=== PATIENT | male | born 1950 | race Caucasian/White ===

== ENCOUNTER 2018-02-28 05:42 | Day surgery (SDC) | payer MEDICARE, BC ==
[2018-02-28] MEDS ORDERED: METOCLOPRAMIDE 10 MG TABLET PO ONE (06:00)
[2018-02-28] MEDS ORDERED: FAMOTIDINE 20MG TABLET PO ONE (06:00)
[2018-02-28] MEDS ORDERED: VANCOMYCIN HCL 1,000 MG in DEXTROSE 5 % IN WATER 250 ML IVPB ONE ×2 (06:00)
[2018-02-28] MEDS ORDERED: ACETAMINOPHEN 1,000 MG/100 ML BTL IV ONE (06:00)
[2018-02-28] MEDS ORDERED: CELECOXIB 100 MG CAPSULE PO ONE (06:00)
[2018-02-28] MEDS ORDERED: MECLIZINE 25 MG TABLET PO ONE (06:00)
[2018-02-28 07:44] LABS: ABO GROUP O; ANTIBODY SCREEN NEGATIVE (NEGATIVE); RH TYPE POSITIVE
[2018-02-28] MEDS ORDERED: DIPHENHYDRAMINE HCL 25 MG CAPSULE PO PRN (08:06)
[2018-02-28] MEDS ORDERED: ACETAMINOPHEN 325 MG TAB PO PRN (08:06)
[2018-02-28] MEDS ORDERED: ACETAMINOPHEN W/ CODEINE 300MG/30MG TABLET PO PRN ×2 (08:06)
[2018-02-28] MEDS ORDERED: TRAMADOL HCL 50 MG TABLET PO PRN ×2 (08:06)
[2018-02-28] MEDS ORDERED: AL HYDROX/MAG HYDROX 30ML UD PO PRN (08:06)
[2018-02-28] MEDS ORDERED: METOCLOPRAMIDE 10 MG TABLET PO PRN (08:06)
[2018-02-28] MEDS ORDERED: PROMETHAZINE HCL 25 MG TABLET PO PRN (08:06)
[2018-02-28] MEDS ORDERED: HYDROCODONE/APAP 5/325MG TABLET PO PRN ×2 (08:06)
[2018-02-28] MEDS ORDERED: ONDANSETRON 4 MG ODT TABLET SL PRN (08:06)
[2018-02-28] MEDS ORDERED: MAGNESIUM HYDROXIDE 30 ML UDC PO PRN (08:06)
[2018-02-28] MEDS ORDERED: KETOROLAC 30 MG/ML VIAL IVP PRN ×2 (08:06)
[2018-02-28] MEDS ORDERED: NALOXONE 0.4 MG/1 ML VIAL IVP PRN (08:06)
[2018-02-28] MEDS ORDERED: HYDROCODONE/APAP 7.5/325MG TABLET PO PRN ×2 (08:06)
[2018-02-28] MEDS ORDERED: BISACODYL 10 MG SUPP RC PRN (08:06)
[2018-02-28] MEDS ORDERED: ACETAMINOPHEN W/ CODEINE 300MG/60MG TABLET PO PRN ×2 (08:06)
[2018-02-28] MEDS ORDERED: DOCUSATE SODIUM 100 MG CAPSULE PO SCH (10:00)
[2018-02-28] MEDS ORDERED: DEXTROSE 5 % AND 0.9 % NACL 1,000 ML IV PRN (10:15)
[2018-02-28] MEDS ORDERED: VANCOMYCIN HCL 500 MG in 0.9 % SODIUM CHLORIDE 100ML 100 ML IVPB SCH (11:15)
--- NOTE | 2018-02-28 14:34 | Rehab Evaluation ---
Patient Information - Patient Information Diagnosis: L hip OA Ordered Treatment: PT Evaluate and Treat Status: Initial Evaluation Surgery: Yes (THR) Date of Surgery: 02/28/18 Past Medical/Surgical Hx: PAST MEDICAL/SURGICAL HISTORY Past Surgical History hernia repair 5th grade "belly button" hernia c scopes PMH - Respiratory Hx Respiratory Disorders Yes Hx Sleep Apnea Yes Hx of CPAP Yes PMH - Cardiovascular Hx Cardiovascular Disorders Yes Hx Hypertension Yes: on meds "iffy" control Exercise Tolerance Fair PMH - Neuro Hx Neurological Disorders No PMH - GI Hx Gastrointestinal Disorders No PMH - Hx Genitourinary Disorders No PMH - Endocrine Hx Endocrine Disorders No PMH - Musculoskeletal Hx Musculoskeletal Disorders Yes Hx Arthritis Yes PMH - Psych Hx Psychiatric Problems No PMH - Hematology/Oncology Hx Hematology/Oncology No Disorders Premorbid Status: Detail (The patient was previously independent with all mobility.) Social History: Detail (The patient lives with spouse in a one story home with 2 steps at the enterance without railings. The patient's bathroom is equipped with a tub/shower combination with a hand held shower and a standard toilet with a raised seat. The patient has a walker with wheels.) Precautions: [place], Other (THR precautions.) - Time With Patient Total Time Spent With Patient (Min): 30 Treatment Procedures: Detail (Initial Evaluation.) Subjective Information - Subjective Information Per Patient (The patient had minimal complaints of L hip pain.) Objective Data - Mental Status Patient Orientation: Oriented x3 - Visual Perception Appears within normal limits for therapeutic activities - ROM Not within normal limits (The patient's L hip is within total hip precautions. All other LE AROM is WNL.) - Strength/Tone Not within normal limits (The patient's L LE strength was not tested secondary to status post surgery, however strength is functional ie: patient is able to lift LE out of bed. The patient's R LE is generally 4+ to 5/5.) - Bed Mobility Independent (The patient is independent with supine to and from sit transfer.) - Transfers Independent (The patient is independent with sit to and from stand transfer.) - Balance Balance Sitting: Good Balance Standing: Good - Sensation Intact - Gait Detail (The patient ambulates independently with wheeled walker a distance of 80 feet WBAT on the L LE. The patient ambulated on 3 steps with one railing and folded walker with supervision for safety only WBAT on the L LE and verbal cues for proper technique.) Therapy Assessment - Therapy Assessment Detail (The patient was independent with bed mobility, transfers and ambulation. The patient has met all inpatient PT goals and is to continue with Home PT.) Patient Education - Patient Education Teaching Topic: Exercise/Activity (The patient was independent with HEP of THR exercises including: gluteal sets, quad sets, hamstring sets, ankle pumps, hip abduction and heel slides.) Response: Return Demonstration Teaching Method: Demonstration, Handout Teaching Recipient: Patient, Family Barriers To Learning: None Problem List - Problem List Physical Therapy Problem List: Detail (Decreased L LE strength as to be expected following sugery.) Goals - Goals Physical Therapy Goals: All inpatient PT goals have been met. Prognosis - Prognosis Good Plan - Plan Physical Therapy Plan: The patient is discharged from inpatient PT. The patient is to continue with Home PT.
--- NOTE | 2018-02-28 14:54 | Rehab Evaluation ---
Patient Information - Patient Information Diagnosis: L hip OA Ordered Treatment: OT Evaluate and Treat Status: Initial Evaluation Surgery: Yes (Left KALLI) Date of Surgery: 02/28/18 History: Detail Past Medical/Surgical Hx: PAST MEDICAL/SURGICAL HISTORY Past Surgical History hernia repair 5th grade "belly button" hernia c scopes PMH - Respiratory Hx Respiratory Disorders Yes Hx Sleep Apnea Yes Hx of CPAP Yes PMH - Cardiovascular Hx Cardiovascular Disorders Yes Hx Hypertension Yes: on meds "iffy" control Exercise Tolerance Fair PMH - Neuro Hx Neurological Disorders No PMH - GI Hx Gastrointestinal Disorders No PMH - Hx Genitourinary Disorders No PMH - Endocrine Hx Endocrine Disorders No PMH - Musculoskeletal Hx Musculoskeletal Disorders Yes Hx Arthritis Yes PMH - Psych Hx Psychiatric Problems No PMH - Hematology/Oncology Hx Hematology/Oncology No Disorders Premorbid Status: Detail (The patient was previously independent with all mobility.) Social History: Detail (The patient lives with significant other in a one story home with 2 steps at the entrance without railings. The patient's bathroom is equipped with a tub/shower combination with a hand held shower and tub bench and a standard toilet with a raised commode seat. The patient has a walker with wheels. His S.O. is responsible for all home mgmt, meal prep and laundry. He was Ind with ADLs.) Precautions: [place], Other (THR precautions.) - Time With Patient Total Time Spent With Patient (Min): 40 Treatment Procedures: Detail (OT eval low complexity) Subjective Information - Subjective Information Per Patient Objective Data - Pain Pain Present: Yes (12/18) - Mental Status Patient Orientation: Oriented x3 - Visual Perception Appears within normal limits for therapeutic activities - ROM Within normal limits - Strength/Tone Within normal limits - Coordination Appears within normal limits for therapeutic activities - Bed Mobility Independent (Ind with supine to sit) - Transfers Independent (Ind with sit to stand from EOB) - Balance Balance Sitting: Good Balance Standing: Good - Sensation Intact - Gait Detail (Pt ambulating in room with 2 wheeled walker Indly.) - ADL's/IADL's Detail (Pt educated and able to demonstrate learning of LE dressing techniques using general neurologist and sock aid while maintaining total hip precautions. He reports he has a grabber and will consider other adaptive equipment as needed. Reviewed showering safety, pt able to verbalize understanding.) Therapy Assessment - Therapy Assessment Detail (Pt is safe and Ind with LE dressing using adaptive equipment.) Problem List - Problem List Occupational Therapy Problem List: Detail (No current OT problems identified at this time.) Goals - Goals Occupational Therapy Goals: No current OT goals identified. Prognosis - Prognosis Good Plan - Plan Occupational Therapy Plan: No further OT recommended at this time. Thank you for this referral.
[2018-02-28] MEDS ORDERED: BUPIVACAINE 0.5% (5MG/ML) PF 30ML VIAL IVP ONE (15:09)
[2018-02-28] MEDS ORDERED: VANCOMYCIN HCL 1 GM VIAL IVPB ONE ×2 (15:09)
[2018-02-28] MEDS ORDERED: TRANEXAMIC ACID 1,000 MG/10 ML ML IV ONE ×2 (15:09)
[2018-02-28] MEDS ORDERED: BUPIVACAINE LIPOSOME 266MG/20ML VIAL IV ONE (15:09)
[2018-02-28] MEDS ORDERED: BUPIVACAINE 0.5% W/EPI MPF 30 ML VIAL IVP ONE (15:09)
[2018-02-28] MEDS ORDERED: EPHEDRINE SULFATE 50 MG/ML ML IV ONE (15:51)
[2018-02-28] MEDS ORDERED: *PACU ONLY* KETAMINE HCL 10 MG/ML (20ML) VIAL IV ONE (15:51)
[2018-02-28] MEDS ORDERED: KETOROLAC 30 MG/ML VIAL IVP ONE (15:51)
[2018-02-28] MEDS ORDERED: PROPOFOL 10 MG/ML VIAL IV ONE (15:51)
[2018-02-28] MEDS ORDERED: ONDANSETRON HCL IV 4 MG/2 ML VIAL IVP ONE (15:51)
[2018-02-28] MEDS ORDERED: MIDAZOLAM HCL 2MG/2ML VIAL IV ONE (15:51)
[2018-02-28] MEDS ORDERED: FENTANYL PF 100MCG/2ML VIAL IV ONE (15:51)
[2018-02-28] MEDS ORDERED: PHENYLEPHRINE HCL 10 MG/ML VIAL IVP ONE (15:51)
--- NOTE | 2018-03-01 07:34 | RADIOLOGY REPORT ---
EXAM: LEFT HIP HISTORY: POST LEFT KALLI. TECHNIQUE: A single AP view of the left hip was obtained. Comparison: Left hip views of the bilateral hip series 03/03/17. FINDINGS: The patient is now postop left KALLI, new since the prior series of . The components appear in good position in the AP projection with no dislocation evident. Some air is seen in the soft tissues which is presumably postoperative in nature. IMPRESSION: POSTOP LEFT KALLI WITH THE COMPONENTS APPEARING IN GOOD POSITION IN THE AP PROJECTION. JOB NUMBER: [id number] [facility]
--- NOTE | 2018-03-01 08:18 | Operative Note ---
DATE OF SURGERY: 02/28/2018 PREOPERATIVE DIAGNOSIS: End-stage left hip arthrosis. POSTOPERATIVE DIAGNOSIS: End-stage left hip arthrosis. OPERATION: Left total hip arthroplasty. SURGEON: Alek Rico M.D. ANESTHESIA: Spinal. ANESTHESIA PROVIDER: Dotty Rios CRNA. COMPLICATIONS: None. BLOOD LOSS: 200 mL. OPERATIVE FINDINGS: Severe [id number] hip arthrosis. COMPONENTS PLACED: [employer]hew Synergy total hip arthroplasty system size 215 high offset with a 52 mm reflection 3-hole acetabular shell component with one acetabular screw, 2 screw caps, centrally threaded screw cap, and 35 degree hooded Highly Crosslinked polyethylene liner and a 32-plus 0 mm Oxinium femoral head component and 1 gram of Vancomycin cement powder. INDICATION FOR OPERATION: A 67-year-old female who has end-stage bilateral hip arthrosis for several years, failed nonoperative treatments and scheduled the procedure above. I explained the risks and benefits thoroughly in detail to him diagnosis and procedures including but not limited to infection, nerve injury, vessel injury, persistent pain, persistent numbness and tingling in his hip, periprosthetic fracture, need for resection arthroplasty, should the components become infected or loosened, nerve injury, vessel injury, blood clot, limb length discrepancy, and need for further procedures. Need for anticoagulation to prevent blood clots, the risks associated with these medications, and all of his questions were answered, the rehab and healing course were outlined and he agreed to proceed. PROCEDURE: The patient was brought to the OR and placed in the right lateral decubitus position. The left hip and lower extremity were prepped and draped in a sterile fashion. The left hip was prepped again with ChloraPrep after it was draped. Intraoperative time-out was performed. Next, a posterior approach was marked over the hip. It was infiltrated with 0.50 % Marcaine with Epinephrine cocktail and Exparel and Tranexamic Acid in the skin and subcutaneous areas. The skin and subcutaneous were dissected down to the gluteal fascia was split longitudinally. Subgluteal plane was bluntly dissected. A self-retainer was brought in. We identified the sciatic nerve. We took off the short external rotators and tagged with a #2 Vicryl to care and protect and retract the sciatic nerve at all times out of the way. Next, incised the capsule superiorly, proximally, and distally and dislocated the femoral head. Femoral head is severely deformed and arthritic. No cartilage. We then resected the femoral head protecting the soft tissues about a 1.5 cm above the lesser trochanter. Inserted a boxed osteotome then inserted reamers and starting reaming in 1 mm increments up to a size 15. We stopped and broached a 13, calcar planed, and 15 degrees of anteversion on the 14 and the 15 and had a good fit there. Attention was turned to the acetabulum now. Released the capsule anteriorly, placed an inferior acetabular retractor and then placed a retractor anteriorly retracting the proximal femur out of the way. Next, removed some of the labrum and capsule and then started reaming in 1 mm increments starting with a 44 mm reamer and 45 degrees inclination, 20 degrees anteversion until we reamed up to a size 51. Next, we trialed a 51 trial component in the same orientation and it fit nice. Next, we changed gloves, brought in a clean sheet, copiously and impacted down the real 3-hole acetabular shell component with the helicopter guide in 45 degrees of inclination and 20 degrees of anteversion until it was flushed with the medial wall. Next, we drilled a posterior/superior central quadrant screw hole, inserted a 40 mm screw that had excellent purchase. Next, placed the trial liner, placed the trial stem back in, and did a trial reduction. Best combination of range of motion, stability and leg length symmetry was with the high offset 32-plus 0 mm femoral head component. This allowed for symmetric leg lengths, good stability, good tension with the abductors, and stability with extension external rotation and flexion internal rotation to 78 degrees before the hip dislocated and these are the size that we use. Next, removed all trial components. Irrigated the femoral canal and acetabulum copiously. Next, I pleased the centrally threaded screw cap, two screw caps, and then impacted the real 35 degree hooded Highly Crosslinked polyethylene liner with the manrique in the posterior/superior quadrant and impacted that down and verified it was locked into the shell. Irrigated the femoral canal and placed some Vancomycin powder in the proximal femur and on the stem. Impacted the stem again at 15 degrees of anteversion until the bead line was flushed with the medial calcar. Cleaned and dried the trunnion, impacted down the real femoral head component, and then re-reduced the hip, final range of motion and stability were the same. Next, we irrigated copiously with pulsatile antibiotic solution. Repair the short external of the rotators to the abductors using #2 Vicryl stitch then injected the mixture again into the deep tissues, abductors, periosteum, and gluteal muscle and fascia. Next, we placed the Vancomycin powder on this layer. Next, closed the gluteal fascia with a running #2 quill suture. A cover for hemostasis was obtained and closed the skin with 2-0 Vicryl. Orte[employer] Nephew ACTICOAT dressing was applied then placed sterile dressing ABD and gauze, with plans to changed later to a CLARENCE dressing prior to discharge today. cc: Dotty Chu JOB NUMBER: [id number] [facility]
== END 2018-02-28 15:52 | disposition home or self-care (01) ==
LOC: SUR 05:42 → UNDOADMIN 05:42 → MEDSURG 05:42 → UNDODISIN 15:52 → SUR 15:52
PROVIDERS: ATTEND Orthopaedic Surgery
DX: M16.12 Unilateral primary osteoarthritis, left hip (principal); I10 Essential (primary) hypertension
CPT/HCPCS: 27130; 01214; 86900; 86901; 86850; 73501; J1885; J2405; J3370; J3010; C9290; J3490; G8978; G8979; G8980; G8987; G8988; G8989; C1776; J2370; J7060

== ENCOUNTER 2018-03-05 09:41 | Emergency (ER) | payer MEDICARE, BC ==
--- NOTE | 2018-03-05 10:32 | Emergency Department Record ---
History of Present Illness - General Chief Complaint: General Stated Complaint: POST SURGICAL PROBLEM Time Seen by Provider: 03/05/18 10:16 Source: Patient, RN notes reviewed Mode of Arrival: Ambulatory - History of Present Illness Initial comments: Patient had left hip replacement by Dr. Rico on Wednesday 5 days ago and his Ubaldo dressing is saturated and beeping and visiting nurses reluctant to change dressing and sent him to the ED and were not able to reach Dr. Rico. Dressing removed and incision looks good will clean his wound and put on another ubaldo dressing. Patient denies pain and walking with a walker. - Related Data Allergies Allergy/AdvReac Type Severity Reaction Status Date / Time losartan potassium AdvReac NAUSEA Verified 03/05/18 09:52 [From Cozaar] propranolol HCl AdvReac NAUSEA Verified 03/05/18 09:52 [From Inderal LA] Awslrsr-Zoh-Zyx Reductase AdvReac NAUSEA Verified 03/05/18 09:52 Inhibitor Travel Screening - Travel/Exposure Within Last 30 Days Have you traveled within the last 30 days?: No Review of Systems Reviewed: No additional complaints except as noted below Constitutional: Reports: As per HPI. Denies: Chills, Fever, Malaise, Night sweats, Weakness, Weight change Eyes: Reports: As per HPI. Denies: Eye discharge, Eye pain, Photophobia, Vision change ENT: Reports: As per HPI. Denies: Congestion, Dental pain, Ear pain, Epistaxis , Hearing loss, Throat pain Respiratory: Reports: As per HPI. Denies: Cough, Dyspnea, Hemoptysis, Stridor, Wheezes Cardiovascular: Reports: As per HPI. Denies: Arrhythmia, Chest pain, Dyspnea on exertion, Edema, Murmurs, Orthopnea, Palpitations, Paroxysmal nocturnal dyspnea, Rheumatic Fever, Syncope Endocrine: Reports: As per HPI. Denies: Fatigue, Heat or cold intolerance, Polydipsia, Polyuria Gastrointestinal: Reports: As per HPI. Denies: Abdominal pain, Constipation, Diarrhea, Hematemesis, Hematochezia, Melena, Nausea, Vomiting Genitourinary: Reports: As per HPI. Denies: Dysuria, Frequency, Hematuria, Incontinence, Retention, Testicular pain, Testicular mass, Urgency Musculoskeletal: Reports: As per HPI. Denies: Arthralgia, Back pain, Gout, Joint swelling, Myalgia, Neck pain Skin: Reports: As per HPI, Other (skin looks goon and incision healing). Denies : Bruising, Change in color, Change in hair/nails, Lesions, Pruritus, Rash Neurological: Reports: As per HPI. Denies: Abnormal gait, Confusion, Headache, Numbness, Paresthesias, Seizure, Tingling, Tremors, Vertigo, Weakness Psychiatric: Reports: As per HPI. Denies: Anxiety, Auditory hallucinations, Depression, Homicidal thoughts, Suicidal thoughts, Visual hallucinations Hematological/Lymphatic: Reports: As per HPI. Denies: Anemia, Blood Clots, Easy bleeding, Easy bruising, Swollen glands Past Medical History - SOCIAL HISTORY Smoking Status: Former smoker Alcohol Use: None Drug Use: None - RESPIRATORY Hx Respiratory Disorders: Yes Hx Sleep Apnea: Yes Hx of CPAP: Yes - CARDIOVASCULAR Hx Cardio Disorders: Yes Hx Hypertension: Yes - NEURO Hx Neuro Disorders: No - GI Hx GI Disorders: No - Hx Genitourinary Disorders: No - ENDOCRINE Hx Endocrine Disorders: No - MUSCULOSKELETAL Hx Musculoskeletal Disorders: No Hx Arthritis: Yes - PSYCH Hx Psych Problems: No - HEMATOLOGY/ONCOLOGY Hx Hematology/Oncology Disorders: No Family Medical History Any Significant Family History?: Yes Hx Alcohol Use: Brother/Sister Hx Cancer: Father, Mother Hx HTN: Mother Hx Stroke: Grandparents Physical Exam - General General Appearance: Alert, Oriented x3, Cooperative, No acute distress - Head Head exam: Normal inspection - Eye Eye exam: Normal appearance, PERRL Pupils: Normal accommodation - ENT ENT exam: Normal exam, Mucous membranes moist, Normal external ear exam, Normal orophraynx, TM's normal bilaterally Ear exam: Normal external inspection. negative: External canal tenderness Nasal Exam: Normal inspection. negative: Discharge, Sinus tenderness Mouth exam: Normal external inspection, Tongue normal Teeth exam: Normal inspection. negative: Dental caries Throat exam: Normal inspection. negative: Tonsillar erythema, Tonsillar exudate - Neck Neck exam: Normal inspection, Full ROM. negative: Tenderness - Respiratory Respiratory exam: Normal lung sounds bilaterally. negative: Respiratory distress - Cardiovascular Cardiovascular Exam: Regular rate, Normal rhythm, Normal heart sounds - GI/Abdominal GI/Abdominal exam: Soft, Normal bowel sounds. negative: Tenderness - Rectal Rectal exam: Deferred - exam: Deferred - Extremities Extremities exam: Normal inspection, Full ROM, Normal capillary refill. negative: Tenderness - Back Back exam: Reports: Normal inspection, Full ROM. Denies: Muscle spasm, Rash noted, Tenderness - Neurological Neurological exam: Alert, Normal gait, Oriented X3, Reflexes normal - Psychiatric Psychiatric exam: Normal affect, Normal mood - Skin Skin exam: Dry, Intact, Normal color, Warm Course Vital Signs 03/05/18 09:46 Temperature 98.0 F Pulse Rate 99 H Respiratory 20 Rate Blood Pressure 193/153 Pulse Ox 95 Wound cleaned and new dressing applied - Reevaluation(s) Reevaluation #1: Discussed case with Dr. Rico 03/05/18 10:32 Disposition Clinical Impression: Post surgical complication Qualifiers: Surgical complication system/body Area: skin Surgical complication type: unspecified Procedure type: dermatologic Qualified Code(s): L76.82 - Other postprocedural complications of skin and subcutaneous tissue Disposition: Home, Self-Care Condition: (1) Good Instructions: Incision and Drainage (ED) Additional Instructions: follow up with Dr. Rico as scheduled Time of Disposition: 10:35 Quality - Quality Measures Quality Measures: N/A - Blood Pressure Screening Does Patient Have Any of the Following: No, Active Dx of HTN Blood Pressure Classification: Hypertensive Reading Systolic Measurement: 193 Diastolic Measurement: 153 Screening for High Blood Pressure: Patient Exclusion, Hx of HTN [[id number]]
== END 2018-03-05 11:03 | disposition home or self-care (01) ==
LOC: ER 09:41
DX: M96.830 Postprocedural hemorrhage of a musculoskeletal structure following a musculoskeletal system procedure (principal); Y83.8 Other surgical procedures as the cause of abnormal reaction of the patient, or of later complication, without mention of misadventure at the time of the procedure; Y79.2 Prosthetic and other implants, materials and accessory orthopedic devices associated with adverse incidents; I10 Essential (primary) hypertension; Z87.891 Personal history of nicotine dependence; Z96.642 Presence of left artificial hip joint
CPT/HCPCS: 99283

== ENCOUNTER 2018-05-02 07:55 | Day surgery (SDC) | payer MEDICARE, BC ==
[~2018-05-02 07:55] MED LIST: ACETAMINOPHEN 1,000 MG/100 ML BTL IV ONE; CELECOXIB 100 MG CAPSULE PO ONE; FAMOTIDINE 20MG TABLET PO ONE; MECLIZINE 25 MG TABLET PO ONE; METOCLOPRAMIDE 10 MG TABLET PO ONE; VANCOMYCIN HCL 1,000 MG in DEXTROSE 5 % IN WATER 250 ML IVPB ONE
[2018-05-02] MEDS ORDERED: BUPIVACAINE LIPOSOME 266MG/20ML VIAL IV ONE (07:56)
[2018-05-02] MEDS ORDERED: PHENYLEPHRINE HCL 10 MG/ML VIAL IVP ONE (07:56)
[2018-05-02] MEDS ORDERED: VANCOMYCIN HCL 1 GM VIAL IVPB ONE (07:56)
[2018-05-02] MEDS ORDERED: EPHEDRINE SULFATE 50 MG/ML ML IV ONE (07:56)
[2018-05-02] MEDS ORDERED: *PACU ONLY* KETAMINE HCL 10 MG/ML (20ML) VIAL IV ONE (07:56)
[2018-05-02] MEDS ORDERED: BUPIVACAINE 0.5% W/EPI MPF 30 ML VIAL IVP ONE (07:56)
[2018-05-02] MEDS ORDERED: MIDAZOLAM HCL 2MG/2ML VIAL IV ONE (07:56)
[2018-05-02] MEDS ORDERED: PROPOFOL 10 MG/ML VIAL IV ONE (07:56)
[2018-05-02] MEDS ORDERED: 0.9 % SODIUM CHLORIDE 10 ML VIAL IVP ONE (07:56)
[2018-05-02] MEDS ORDERED: TRANEXAMIC ACID 1,000 MG/10 ML ML IV ONE ×2 (07:56)
[2018-05-02] MEDS ORDERED: ACETAMINOPHEN W/ CODEINE 300MG/30MG TABLET PO PRN ×2 (08:05)
[2018-05-02] MEDS ORDERED: ACETAMINOPHEN W/ CODEINE 300MG/60MG TABLET PO PRN ×2 (08:05)
[2018-05-02] MEDS ORDERED: ACETAMINOPHEN 325 MG TAB PO PRN (08:05)
[2018-05-02] MEDS ORDERED: TRAMADOL HCL 50 MG TABLET PO PRN ×2 (08:05)
[2018-05-02] MEDS ORDERED: ONDANSETRON 4 MG ODT TABLET SL PRN (08:05)
[2018-05-02] MEDS ORDERED: AL HYDROX/MAG HYDROX 30ML UD PO PRN (08:05)
[2018-05-02] MEDS ORDERED: PROMETHAZINE HCL 25 MG TABLET PO PRN (08:05)
[2018-05-02] MEDS ORDERED: BISACODYL 10 MG SUPP RC PRN (08:05)
[2018-05-02] MEDS ORDERED: NALOXONE 0.4 MG/1 ML VIAL IVP PRN (08:05)
[2018-05-02] MEDS ORDERED: HYDROCODONE/APAP 5/325MG TABLET PO PRN ×2 (08:05)
[2018-05-02] MEDS ORDERED: HYDROCODONE/APAP 7.5/325MG TABLET PO PRN (08:05)
[2018-05-02] MEDS ORDERED: MAGNESIUM HYDROXIDE 30 ML UDC PO PRN (08:05)
[2018-05-02] MEDS ORDERED: METOCLOPRAMIDE 10 MG TABLET PO PRN (08:05)
[2018-05-02] MEDS ORDERED: DIPHENHYDRAMINE HCL 25 MG CAPSULE PO PRN (08:05)
[2018-05-02] MEDS ORDERED: KETOROLAC 30 MG/ML VIAL IVP PRN ×2 (08:05)
[2018-05-02 09:08] LABS: ABO GROUP O
[2018-05-02 09:09] LABS: ANTIBODY SCREEN NEGATIVE (NEGATIVE); RH TYPE POSITIVE
[2018-05-02 12:26] LABS: HEMATOCRIT 45.9 % (42.0-52.0); HEMOGLOBIN 15.8 gm/dl (14.0-18.0)
[2018-05-02] MEDS ORDERED: VANCOMYCIN HCL 500 MG in 0.9 % SODIUM CHLORIDE 100ML 100 ML IVPB SCH (13:00)
[2018-05-02] MEDS ORDERED: DEXTROSE 5 % AND 0.9 % NACL 1,000 ML IV PRN (13:45)
[2018-05-02] MEDS: DOCUSATE SODIUM 100 MG CAPSULE PO SCH ×2 (14:40→23:15)
--- NOTE | 2018-05-02 15:50 | Rehab Evaluation ---
Patient Information - Patient Information Diagnosis: R hip OA Ordered Treatment: PT Evaluate and Treat Status: Initial Evaluation Surgery: Yes (RTHR) Date of Surgery: 05/02/18 Past Medical/Surgical Hx: PAST MEDICAL/SURGICAL HISTORY Past Surgical History LTHA 02-28-18 hernia repair 5th grade "belly button" hernia recently left hip PMH - Respiratory Hx Respiratory Disorders Yes Hx Sleep Apnea Yes Hx of CPAP Yes PMH - Cardiovascular Hx Cardiovascular Disorders Yes Hx Hypertension Yes: on meds good control Exercise Tolerance Fair PMH - Neuro Hx Neurological Disorders No PMH - GI Hx Gastrointestinal Disorders No PMH - Hx Genitourinary Disorders No PMH - Endocrine Hx Endocrine Disorders No PMH - Musculoskeletal Hx Musculoskeletal Disorders Yes Hx Arthritis Yes PMH - Psych Hx Psychiatric Problems No PMH - Hematology/Oncology Hx Hematology/Oncology No Disorders Premorbid Status: Detail (The patient was independent with all mobility prior to surgery.) Social History: Detail (The patient lives with spouse in a one story house with 2 steps without a railing a the enterance ( a step, landing, step) The patient' s bathroom is equipped with a tub/shower combination with grab bars and a hand held shower and a standard toiler with a riser seat. The patient has a 2 wheeled walker.) Precautions: [place], [place], Other (THR precautions.)
--- NOTE | 2018-05-02 16:38 | Occupational Therapy Tx Note ---
Occupational Therapy Tx Note - Treatment Note Occupational Therapy Treatment Note: Detail (Attempted OT eval, pt very lightheaded and pale therefore eval not completed at this time.)
--- NOTE | 2018-05-02 16:45 | Physical Therapy Tx Note ---
Physical Therapy Tx Note - Treatment Note Tolerated: Poor Total Time Spent With Patient: 20 Physical Therapy Tx Note: Detail (The patient was seen by PT and OT x 2 . The patient sat on the edge of the bed at 3 :00 and complained of lightheadness. The patient retrned to lying position and became unresponsive x 5 seconds. The patient responded after this time period, RN was present as well. Patient was left with RN who was attending to patient's incisional dressing. PT/OT returned at 4:00 and the patient again complained of lightheadness when seated. The patient's B/P was 58/32. The patient returned to bed with assist of PT/ OT and family member. RN was notified. PT will hold at this time. RN to notify Dr. Rico.)
[2018-05-02 16:58] LABS: HEMATOCRIT 33.3 % (42.0-52.0); HEMOGLOBIN 10.9 gm/dl (14.0-18.0)
[2018-05-02] MEDS: HYDROCODONE/APAP 7.5/325MG TABLET PO PRN ×2 (20:14→23:16)
[2018-05-03] MEDS: HYDROCODONE/APAP 7.5/325MG TABLET PO PRN (05:10)
[2018-05-03 06:57] LABS: HEMATOCRIT 31.7 % (42.0-52.0); HEMOGLOBIN 10.7 gm/dl (14.0-18.0)
--- NOTE | 2018-05-03 07:07 | RADIOLOGY REPORT ---
EXAM: RIGHT HIP, SINGLE VIEW HISTORY: POSTOP RIGHT KALLI. TECHNIQUE: A single AP view of the right hip was obtained. Comparison: Bilateral hip series 03/03/17. FINDINGS: Since the prior exam the patient has undergone a right KALLI. The components appear in good position in the AP projection. The tip of the femoral component is not included on the current film. Some air in the soft tissues is presumably postoperative in nature. IMPRESSION: POSTOP RIGHT KALLI WITH THE COMPONENTS APPEARING IN GOOD POSITION. [facility]BER: [id number] [facility]
--- NOTE | 2018-05-03 08:37 | Rehab Evaluation ---
Patient Information - Patient Information Diagnosis: R hip OA Ordered Treatment: OT Evaluate and Treat Status: Initial Evaluation Surgery: Yes (RTHR) Date of Surgery: 05/02/18 Past Medical/Surgical Hx: PAST MEDICAL/SURGICAL HISTORY Past Surgical History LTHA 02-28-18 hernia repair 5th grade "belly button" hernia recently left hip PMH - Respiratory Hx Respiratory Disorders Yes Hx Sleep Apnea Yes Hx of CPAP Yes PMH - Cardiovascular Hx Cardiovascular Disorders Yes Hx Hypertension Yes: on meds good control Exercise Tolerance Fair PMH - Neuro Hx Neurological Disorders No PMH - GI Hx Gastrointestinal Disorders No PMH - Hx Genitourinary Disorders No PMH - Endocrine Hx Endocrine Disorders No PMH - Musculoskeletal Hx Musculoskeletal Disorders Yes Hx Arthritis Yes PMH - Psych Hx Psychiatric Problems No PMH - Hematology/Oncology Hx Hematology/Oncology No Disorders Premorbid Status: Detail (The patient was independent with all mobility prior to surgery.) Social History: Detail (The patient lives with significant other in a one story house with 2 steps without a railing at the entrance ( a step, landing, step) The patient's bathroom is equipped with a tub/shower combination with seat, grab bars and a hand held shower and a standard toiler with a riser seat. The patient has a 2 wheeled walker, grabber and long scrub brush.) Precautions: Garita, Fall, Other (THR precautions.) - Time With Patient Total Time Spent With Patient (Min): 30 Treatment Procedures: Detail (OT eval low complexity) Subjective Information - Subjective Information Per Patient, Other (Per significant other.) Objective Data - Pain Pain Present: Yes (2-3/10) - Mental Status Patient Orientation: Oriented x3 - Visual Perception Appears within normal limits for therapeutic activities - ROM Within normal limits (Daniel UE AROM WNL) - Strength/Tone Within normal limits (Daniel UE strength WNL) - Coordination Appears within normal limits for therapeutic activities - Bed Mobility Independent (Ind with supine to sit) - Transfers Independent (Ind with sit to stand from raised chair.) - Balance Balance Sitting: Good Balance Standing: Good - Sensation Intact - ADL's/IADL's Detail (Pt educated and demonstrated learning of LE dressing with use of maintenance of way supervisor including sweatpants and tennis shoes. He reports his S.O. will be available to assist if needed but he did not have any trouble after the last hip surgery. Reviewed shower and kitchen modifications/safety and pt/S.O. verbalized understanding.) Therapy Assessment - Therapy Assessment Detail (Pt Ind with LE dressing with use of maintenance of way supervisor.) Problem List - Problem List Occupational Therapy Problem List: Detail (No current OT problems identified.) Goals - Goals Occupational Therapy Goals: No current OT goals identified. Prognosis - Prognosis Good Plan - Plan Occupational Therapy Plan: No further IP OT recommended. Thank you for this referral.
[2018-05-03] MEDS: DOCUSATE SODIUM 100 MG CAPSULE PO SCH (09:05)
--- NOTE | 2018-05-04 20:40 | Operative Note ---
DATE OF SURGERY: 05/02/2018 PREOPERATIVE DIAGNOSIS: End-stage right hip arthrosis. POSTOPERATIVE DIAGNOSIS: End-stage right hip arthrosis. OPERATION: Right total hip arthroplasty. SURGEON: Alek Rico M.D. ANESTHESIA: Spinal. Dotty Rios CRNA. COMPLICATIONS: None. BLOOD LOSS: 1 Liter. OPERATIVE FINDINGS: [id number] hip arthrosis. COMPONENTS PLACED: [employer] Synergy total hip arthroplasty system, proximally porous-coated, press-fit, size 14 high offset stem with a 32 +0 mm Oxinium femoral head component, a 52 mm three-hole reflection acetabular shell component with two screw caps, a centrally threaded screw cap, and a 40 mm acetabular screw, and a 35 degree high-crosslinked polyethylene liner. INDICATIONS FOR OPERATION: This is a 67-year-old male, well-known to myself, who is status post left hip arthroplasty done a few months ago and now is scheduled for his right. I explained the risks and benefits to him in detail for his diagnosis and procedures including but not limited to; infection, nerve injury, vessel injury, persistent pain, persistent numbness and tingling in his hip, periprosthetic fracture, need for resection arthroplasty should the components become infected or loosened, nerve injury, vessel injury, blood clot , need for further procedures, need for anticoagulation to prevent blood clots and risks associated with these medications. All of his questions were answered. Rehab and course were outlined and he agreed to proceed. PROCEDURE: The patient was brought to the O.R. and placed in the left lateral decubitus position. His right hip and lower extremity were prepped and draped in a sterile fashion, prepped again with ChloraPrep after it was draped. Intraoperative time-out was performed. Next, a posterior approach was marked over the hip and infiltrated with 0.5% Marcaine with Epinephrine, 2 grams of Tranexamic Acid and Exparel mixture. The skin and subcutaneous tissues were dissected down to the gluteal fascia. The gluteal fascia was split longitudinally and the subgluteal plane was bluntly dissected. A self-retainer was brought in. I identified the sciatic nerve and carefully protected it at all times. I took off the short external rotators. I released the capsule superiorly and inferiorly. I dislocated the femoral head. I resected the femoral head about 1.5 cm above the lesser trochanter. I inserted the boxed osteotome and then inserted the reamers with power, working up to a 16 mm reamer. We stopped there, as we began to have a tight fit proximally and distally. We broached a 12 in 15 degrees of anteversion and then a 13 in 15 degrees of anteversion, and then a 14 and it fit nicely. Next, attention was turned to the acetabulum. We released the capsule anteriorly , placed an inferior acetabular retractor and the anterior retractor to retract the proximal femur out of the way and exposed the acetabulum nicely. We removed some of the remaining capsule and ligament medially and then started reaming in 1 mm increments with a 44 mm reamer starting on 45 degrees of inclination and 20 degrees of anteversion until we reamed up to a size 51. We trialed a 52 and had good fit, same as contralateral. We irrigated copiously. We changed gloves and packed down the real 52 shell using the helicopter guide, again in 45 degrees of inclination and 20 degrees of anteversion. We verified it was flush medially. We drilled the posterior central superior quadrant screw hole and inserted a 40 mm screw and had excellent purchase. We placed the trial liner and did a trial reduction with the trial stem. We had the best combination for range of motion and stability with a high-offset 14 mm stem. This allowed for a good tight reduction, abductor tensioning was good, the leg lengths were equal and stability with extension in external rotation and flexion in internal rotation was achieved. Next, we removed all trial components, irrigated the acetabulum copiously, and placed the two screw caps and the centrally threaded screw cap and impacted down the real 35 degree hooded highly-crosslinked liner with the manrique in the posterior superior quadrant and verified this was flush and then locked. We irrigated the femoral canal copiously and impacted down the real 14 femoral stem until it was flush with the bead line medially and to the calcar in 15 degrees of anteversion. We cleaned the trunnion and impacted down the real femoral head. We re-reduced the hip. Final range of motion revealed the same. We irrigated copiously. I injected the deep capsule and deep external rotators, protecting the sciatic nerve, with 0.5% Marcaine, Tranexamic acid, and Exparel mixture deep to superficial, the periosteum, and then worked our way out closing the gluteal fascia with running #2 Quill suture. Injected again deep with 0.5% Marcaine with Epinephrine. Subcutaneous tissue and skin closed with 2-0 Vicryl. Sterile dressing applied, abduction pillow. Post-op x-ray showed good fit and orientation of components. The patient tolerated the procedure well. No intraoperative complications. All sponge, needle, and blade counts were correct. Recovery stable, neurovascularly intact. He will be discharged as an outpatient, as he was before and follow-up in two weeks. We'll have Home Therapy Nurse meet him a his house today. cc: Dr. Aayush Montalvo JOB NUMBER: [id number] MTDD
== END 2018-05-03 09:30 | disposition home health service (06) ==
LOC: SUR 07:55 → MEDSURG 14:07 → SUR 05-03 09:30
PROVIDERS: ATTEND Orthopaedic Surgery
DX: M16.11 Unilateral primary osteoarthritis, right hip (principal); I10 Essential (primary) hypertension
CPT/HCPCS: 27130; 01214; 85018; 85014; 86900; 86901; 86850; 73501; J3370; C9290; J3490; G8978; G8979; G8980; G8987; G8988; G8989; C1776; J2370; J7060

== ENCOUNTER 2018-07-08 08:56 | Day surgery (SDC) | payer MEDICARE, BC ==
[2018-07-08] MEDS ORDERED: LIDOCAINE 2% MDV (20MG/ML) 20ML VIAL IV ONE (08:57)
[2018-07-08] MEDS ORDERED: PROPOFOL 10 MG/ML VIAL IV ONE (08:57)
--- NOTE | 2018-07-11 09:20 | Operative Note ---
DATE OF SURGERY: SURGEON: Racheal Chen MD OPERATION: COLONOSCOPY. INDICATIONS: This is a 67-year-old male with history of positive Cologuard who presented for colonoscopy. POSTOPERATIVE DIAGNOSES: 1. A 1 cm pedunculated polyp in the sigmoid colon that was removed by snare cautery. 2. Left-sided colonic diverticulosis. 3. Otherwise normal colon. ANESTHESIA: Sedation is per Anesthesia. Pulse oximetry was monitored throughout the procedure to maintain O2 saturation of 90% or greater. Supplemental oxygen was administered via nasal cannula. Cardiac and vital signs were monitored throughout the duration of the procedure, and they were stable. The procedure of colonoscopy and risks and alternatives of the procedure, including the risk of bleeding and perforation, among others, were explained to the patient who voiced understanding and agreed to have the procedure done. Physical examination was performed, and the patient was found stable for sedation. PROCEDURE: The patient was placed in the left lateral position. Sedation was initiated. A digital rectal exam was performed and showed some mild external hemorrhoids with no palpable rectal masses. An Olympus PCF-180AL colonoscope was then inserted into the rectum under direct visualization. It was advanced to the cecum without difficulty. The ileocecal valve and appendiceal orifice were identified and photographed. The colonic mucosa was carefully examined upon introduction of the colonoscope. There were scattered diverticula noted in the sigmoid and descending colon. In the sigmoid colon was a 1 cm pedunculated polyp that was noted. This was removed with snare cautery, and a hemoclip was applied to the base. There were no other lesions noted. The colonoscope was then withdrawn while carefully examining the colonic mucosal surfaces. No other lesions were noted. In the rectum, retroflexion was performed and grade 1 internal hemorrhoids were noted. The colonoscope was then withdrawn and the procedure was terminated. The patient tolerated the procedure well without any immediate complications. The patient remained with stable vital signs and was transferred to the recovery room. RECOMMENDATIONS: 1. The patient should be on a low-residue diet for 2 weeks and thereafter to be on a high-fiber diet. 2. The patient is to avoid any aspirin or aspirin-like medications for 2 weeks. 3. The patient is to have a repeat colonoscopy for surveillance in 3 years. Thank you for allowing me to participate in the care of your patient. CC: RUPINDER Ross
== END 2018-07-08 11:45 | disposition home or self-care (01) ==
LOC: HOP 08:56
PROVIDERS: ATTEND Internal Medicine Gastroenterology
DX: R19.5 Other fecal abnormalities (principal); D12.5 Benign neoplasm of sigmoid colon; K57.30 Diverticulosis of large intestine without perforation or abscess without bleeding; I10 Essential (primary) hypertension